=== PATIENT | male | born 1995 | race Hispanic/Latino ===

== ENCOUNTER 2022-01-13 19:56 | Emergency (ER) | payer OTHER ==
[~2022-01-13] VITALS: Ht 193 cm; Wt 159.0 kg
[2022-01-13] MEDS ORDERED: ADVIL200 M1 PO (20:07)
[2022-01-13] MEDS ORDERED: AMOXICILLIN500 MG PO (20:37)
== END 2022-01-13 20:54 | disposition home or self-care (01) ==
LOC: ED 19:56
DX: J02.9 Acute pharyngitis, unspecified (principal)
CPT/HCPCS: 87081; 87880; 99283

== ENCOUNTER 2022-06-15 23:17 | Observation (INO) | payer OTHER ==
[~2022-06-15] VITALS: Ht 193 cm; Wt 156.0 kg
[~2022-06-15 23:17] MED LIST: ADVIL200 M1 PO; AMOXICILLIN500 MG PO
[2022-06-16] MEDS ORDERED: AMOX TR-K CLV1 EAC1 PO (14:56)
== END 2022-06-16 15:44 | disposition home or self-care (01) ==
LOC: ED 23:17 → MS 23:19 → CCU 23:19 → MS 06-16 11:40
PROVIDERS: ADMIT Internal Medicine; ATTEND Internal Medicine
DX: J03.90 Acute tonsillitis, unspecified (principal); E66.01 Morbid (severe) obesity due to excess calories; Z68.41 Body mass index [BMI] 40.0-44.9, adult; Z20.822 Contact with and (suspected) exposure to COVID-19
CPT/HCPCS: 36415; 70491; 71045; 80053; 83605; 85025; 86308; 87502; 87880; A9270; C9803; J0295; J0696; J1100; J3490; J7121; Q9967; U0003